=== PATIENT | female | born 2000 | race Caucasian/White ===

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

== ENCOUNTER → 2020-01-02 | Outpatient (CLI) | payer OTHER | END | disposition home or self-care (01) | LOC: RAD 08:27 | PROVIDERS: ATTEND Family Medicine | DX: K57.10 Diverticulosis of small intestine without perforation or abscess without bleeding (principal); R11.10 Vomiting, unspecified | CPT/HCPCS: 74240 ==